=== PATIENT | female | born 1990 | race American Indian/Alaskan Native ===

== ENCOUNTER 2021-05-20 23:27 | Emergency (ER) | payer SELFPAY ==
--- NOTE | 2021-05-21 03:59 | Emergency Department Report ---
ED Female HPI - General Stated complaint: VAGINAL BLEEDING - History of Present Illness Initial comments: Patient is a A2 30-year-old -[place] female with no past medical history who presents to the ED with complaint of acute onset persistent heavy vaginal bleeding and pelvic pain for the last 1 week, worse in the last 3 days with heaviness. Patient states that the vaginal bleeding initially started as mild and spotting but subsequently became heavier in the last 3 days such that in the last 12 hours she has had multiple heavy bleeding and blood clots. Katie ent states that this is second time this month that she is having vaginal bleeding, and that last month she had similar apparent bleeding patterns during her menstrual cycle but initially brushed aside. Patient denies dysuria, urinary frequency and urgency, chest pain, shortness of breath, nausea and vomiting, diarrhea, low back pain, fever, chills, dizziness or syncope. MD Complaint: vaginal bleeding, pelvic pain -: Sudden, week(s) (1) Location: suprapubic, other (vagina) Radiation: non-radiating Severity: severe Severity scale (0 -10): 7 Quality: cramping, aching Consistency: constant Improves with: none Worsens with: none Are you Now?: No Associated Symptoms: denies other symptoms, vaginal bleeding, abdominal pain (suprapubic), hematuria. denies: vaginal discharge, nausea/vomiting, fever/chills, headaches, loss of appetite, dysuria, rash, seizure, shortness of breath, syncope, weakness - Related Data Sexually active: Yes : 3 Para: 1 A: 2 Previous Rx's Medication Instructions Recorded Last Taken Type Ibuprofen [Motrin] 800 mg PO Q8HR PRN #30 tablet 05/21/21 Unknown Rx Ondansetron [Zofran Odt] 4 mg PO Q8HR PRN #15 tab.rapdis 05/21/21 Unknown Rx medroxyPROGESTERone ACETATE 10 mg PO DAILY #10 05/21/21 Unknown Rx [Provera] Allergies Allergy/AdvReac Type Severity Reaction Status Date / Time No Known Allergies Allergy Unverified 05/21/21 04:34 ED Review of Systems ROS: Stated complaint: VAGINAL BLEEDING Other details as noted in HPI Constitutional: denies: chills, fever Eyes: denies: eye pain, eye discharge, vision change ENT: denies: ear pain, throat pain Respiratory: denies: cough, shortness of breath, wheezing Cardiovascular: denies: chest pain, palpitations Endocrine: no symptoms reported Gastrointestinal: abdominal pain (suprapubic). denies: nausea, vomiting, diarrhea Genitourinary: hematuria, abnormal menses (vaginal bleeding). denies: urgency, dysuria, frequency, discharge Musculoskeletal: denies: back pain, joint swelling, arthralgia Skin: denies: rash, lesions Neurological: denies: headache, weakness, paresthesias Psychiatric: anxiety. denies: depression Hematological/Lymphatic: denies: easy bleeding, easy bruising ED Past Medical Hx - Medications Home Medications: Home Medications Medication Instructions Recorded Confirmed Last Taken Type Ibuprofen [Motrin] 800 mg PO Q8HR PRN #30 tablet 05/21/21 Unknown Rx Ondansetron [Zofran Odt] 4 mg PO Q8HR PRN #15 tab.rapdis 05/21/21 Unknown Rx medroxyPROGESTERone ACETATE 10 mg PO DAILY #10 05/21/21 Unknown Rx [Provera] ED Physical Exam - General General appearance: alert, in no apparent distress - Head Head exam: Present: atraumatic, normocephalic, normal inspection - Eye Eye exam: Present: normal appearance, PERRL, EOMI Pupils: Present: normal accommodation - ENT ENT exam: Present: normal exam, normal orophraynx, mucous membranes moist, TM's normal bilaterally, normal external ear exam - Neck Neck exam: Present: normal inspection, full ROM - Respiratory Respiratory exam: Present: normal lung sounds bilaterally. Absent: respiratory distress, wheezes, rales, rhonchi, stridor, chest wall tenderness, accessory muscle use, decreased breath sounds - Cardiovascular Cardiovascular Exam: Present: regular rate, normal rhythm, normal heart sounds. Absent: systolic murmur, diastolic murmur, rubs, gallop - GI/Abdominal GI/Abdominal exam: Present: soft, tenderness (Palpable mild suprapubic tenderness), normal bowel sounds. Absent: guarding, rebound, hyperactive bowel sounds, hypoactive bowel sounds, organomegaly - Bi-manual exam: Present: other (Pelvic exam deferred at this time) - Extremities Exam Extremities exam: Present: normal inspection, full ROM, normal capillary refill. Absent: tenderness, pedal edema, joint swelling - Back Exam Back exam: Present: normal inspection, full ROM. Absent: tenderness, CVA tenderness (R), CVA tenderness (L), muscle spasm, paraspinal tenderness, vertebral tenderness - Neurological Exam Neurological exam: Present: alert, oriented X3, CN II-XII intact, normal gait, reflexes normal - Psychiatric Psychiatric exam: Present: normal affect, normal mood - Skin Skin exam: Present: warm, dry, intact, normal color. Absent: rash ED Course Vital Signs 05/21/21 03:10 Temperature 98.0 F Pulse Rate 95 H Respiratory 18 Rate Blood Pressure 147/104 O2 Sat by Pulse 98 Oximetry ED Medical Decision Making - Lab Data Result diagrams: 05/21/21 03:53 05/21/21 03:53 - Radiology Data Radiology results: report reviewed, image reviewed - Medical Decision Making This is a A2 30-year-old -[place] female with no past medical history who presents to the ED with complaint of acute onset persistent heavy vaginal bleeding and pelvic pain for the last 1 week, worse in the last 3 days with heaviness. Patient states that the vaginal bleeding initially started as mild and spotting but subsequently became heavier in the last 3 days such that in the last 12 hours she has had multiple heavy bleeding and blood clots. Patient states that this is second time this month that she is having vaginal bleeding, and that last month she had similar apparent bleeding patterns during her menstrual cycle but initially brushed aside. In the ED, patient is alert and oriented x3 and is not in distress but anxious during the physical exam in triage. Lab test results were reviewed and are all nonactionable. Patient was treated in the ED for pain, and also given initial oral medroxyprogesterone 10 mg oral tablet in the ED for bleeding control. Patient was discharged home on pain medication and a prescription of medroxyprogesterone 10 mg tablet daily for 10 days. Patient was advised to follow-up with the [facility] physician in 3 to 5 days for reevaluation or return to the ED immediately if symptoms get worse. - Differential Diagnosis Ovarian cyst; ; anemia; UTI; uterine fibroid; DUB; STD; PID Critical care attestation.: If time is entered above; I have spent that time in minutes in the direct care of this critically ill patient, excluding procedure time. ED Disposition Clinical Impression: Dysfunctional uterine bleeding, Menometrorrhagia, Dysmenorrhea Disposition: HOME / SELF CARE / HOMELESS Is pt being admited?: No Does the pt Need Aspirin: No Condition: Stable Instructions: Metrorrhagia, [id number], Menorrhagia, [id number], Abnormal Uterine Bleeding, [id number], Dysmenorrhea, [id number] Additional Instructions: All lab test results were reviewed and are all nonactionable. Your symptoms due to dysfunctional uterine bleeding which may be due to hormonal disturbance and changes triggered by various physiological conditions as well as stressful conditions. Therefore take medication as needed for pain, also take the Provera tablet daily for 10 days in order to stop the bleeding, and follow-up with the [facility] physician Dr. Larson in 3 to 5 days for reevaluation. Contact Dr. Larson's office first thing in the morning on Saturday May 22, 2021 to schedule a follow-up appointment. Otherwise return to the ED immediately if symptoms get worse. Prescriptions: Ibuprofen [Motrin] 800 mg PO Q8HR PRN #30 tablet PRN Reason: Pain , Severe (7-10) medroxyPROGESTERone ACETATE [Provera] 10 mg PO DAILY #10 Ondansetron [Zofran Odt] 4 mg PO Q8HR PRN #15 tab.rapdis PRN Reason: Nausea Referrals: KRISSY LARSON MD [Staff Physician] - 3-5 Days [facility] [Provider Group] - as needed Forms: Work/School Release Form(ED) Time of Disposition: 05:53 Print Language: ROMANIAN
[2021-05-21 04:42] LABS: Bacteria,Urine 1+ /HPF (Negative); Bilirubin,Urine NEG (Negative); Blood,Urine MOD (Negative); Color,Urine Yellow (Yellow); Mucus,Urine 2+ /HPF; Protein,Urine <15 mg/dL mg/dL (Negative)
[2021-05-21 04:52] LABS: Hematocrit 42.6 % (30.3-42.9); Mean Corpuscular HGB Conc 33 % (30-34); Mean Corpuscular Volume 96 fl (79-97); Platelet Count 155 K/mm3 (140-440); Red Blood Count 4.46 M/mm3 (3.65-5.03); Red Cell Distribution Width 13.1 % (13.2-15.2)
[2021-05-21 04:56] LABS: Alanine Aminotransferase 14 units/L (7-56); Albumin 4.5 g/dL (3.9-5); BUN/Creatinine Ratio 10; Blood Urea Nitrogen 8 mg/dL (7-17); Calcium 9.2 mg/dL (8.4-10.2); Hemolysis Index 20
[2021-05-21] MEDS ORDERED: IBUPROFEN 600 MG TAB PO ONE (05:12)
[2021-05-21] MEDS ORDERED: ACETAMINOPHEN 500 MG TAB PO ONE (05:12)
[2021-05-21] MEDS ORDERED: ONDANSETRON 4 MG ODT TAB PO ONE (05:12)
[2021-05-21] MEDS ORDERED: medroxyPROGESTERone ACETATE 5 MG TAB PO ONE (05:51)
[2021-05-21 06:30] LABS: Basophils % (Manual) 0 % (0.0-1.8); Total Cells Counted 100
[2021-05-21 06:31] LABS: Anisocytosis 1+; Platelet Estimate Consistent w Auto
[2021-05-21 06:36] VITALS: BP 142/90
== END 2021-05-21 06:22 | disposition home or self-care (01) ==
LOC: ED 23:27
DX: N93.8 Other specified abnormal uterine and vaginal bleeding (principal); N92.1 Excessive and frequent menstruation with irregular cycle; N94.6 Dysmenorrhea, unspecified
CPT/HCPCS: 36415; 80053; 81001; 84703; 85007; 85025; 99283